=== PATIENT | male | born 2000 | race Caucasian/White ===

== ENCOUNTER 2020-08-21 12:45 | Emergency (ER) | payer SELFPAY ==
[~2020-08-21] VITALS: Ht 170.2 cm; Wt 79.5 kg
[2020-08-21 12:48] VITALS: BP 114/72; Ht 170.2 cm; Wt 79.5 kg
[2020-08-21 13:45] LABS: UDS - AMPHET NEGATIVE QUAL (NEGATIVE); UDS - BARB NEGATIVE QUAL (NEGATIVE); UDS - BENZO POSITIVE QUAL (NEGATIVE); UDS - COCAINE NEGATIVE QUAL (NEGATIVE); UDS - OPIATE NEGATIVE QUAL (NEGATIVE); UDS - PCP NEGATIVE QUAL (NEGATIVE); UDS - THC POSITIVE QUAL (NEGATIVE)
[2020-08-21 13:55] LABS: CALC OSMOLALITY 275 mosm/kg (275-300); CALCIUM 9.4 mg/dL (8.5-10.1); CARBON DIOXIDE 28.6 mmol/L (21.0-32.0); CHLORIDE - SERUM 103 mmol/L (98-107); CREATININE - SERUM 0.8 mg/dL (0.6-1.3); GLUCOSE 92 mg/dL (74-106); POTASSIUM - SERUM 3.7 mmol/L (3.5-5.1); SODIUM 138 mmol/L (136-145); UREA NITROGEN 13 mg/dL (7-18); eGFR NON AFRICAN AMERICAN > 90 mL/min (90-120)
[2020-08-21 14:15] LABS: BASOPHILS 0.9 % (0-2); EOSINOPHILS 0.8 % (0-7); HEMATOCRIT 44.9 % (42.0-54.0); HEMOGLOBIN 15.1 g/dL (13.5-17.5); IMMATURE GRANULOCYTES 0.1 % (0-5); LYMPHOCYTE ABS# 2.39 10x3/uL (1.32-3.57); LYMPHOCYTES 29.9 % (15-50); MCH 30.5 pg (26.0-34.0); MCHC 33.6 g/dL (31.0-37.0); MCV 90.7 fL (80.0-100.0); MEAN PLATELET VOLUME 11.8 fL (7.4-10.4); NEUTROPHIL ABS# 4.89 10x3/uL (1.78-5.38); NEUTROPHILS 61.3 % (40-80); PLATELET COUNT 244 10x3/uL (130-400); RBC 4.95 10x6/uL (4.20-6.10); RDW 13.2 % (11.5-14.5)
== END 2020-08-21 14:49 | disposition home or self-care (01) ==
LOC: D.ER 12:45
PROVIDERS: Emergency Medicine
DX: F13.10 Sedative, hypnotic or anxiolytic abuse, uncomplicated (principal); R41.82 Altered mental status, unspecified